=== PATIENT | female | born 1980 | race African-American/Black ===

== ENCOUNTER 2018-04-23 09:38 | Emergency (ER) | payer SELFPAY ==
--- NOTE | 2018-04-23 10:06 | ER Document Report ---
ED Medical Screen (RME) - General Chief Complaint: Vaginal Bleeding Stated Complaint: VAGINAL BLEEDING, BACK/SIDE PAIN Time Seen by Provider: 04/23/18 09:56 Notes: RAPID MEDICAL EVALUATION DISCLOSURE I have seen this patient as part of a Rapid Medical Evaluation and, if applicable, placed any initially appropriate orders. The patient will be seen and fully evaluated, including a full history and physical exam, by a provider (in Main ED or Fast Track) when a room becomes available. 37-year-old female here with complaints of low back pain, left side pain, and vaginal spotting ongoing for the past 2 weeks. Her back pain is worse with torso twisting. She has not taken anything for the symptoms other than Flexeril. She has not taken any home test. She does not have any urinary symptoms. She denies any abdominal pain. EXAM CTAB RRR No low back TTP TRAVEL OUTSIDE OF THE [place] IN LAST 30 DAYS: No - Related Data Allergies/Adverse Reactions: No Known Allergies Allergy (Unverified 04/23/18 09:55) Past Medical History - General Last Menstrual Period: currently menstrating - Social History Chew tobacco use (# tins/day): No Frequency of alcohol use: Occasional Drug Abuse: None Renal/ Medical History: Denies: Hx Peritoneal Dialysis Past Surgical History: Reports: Hx Orthopedic Surgery - ACL Physical Exam - Vital signs Vitals: Temp Pulse Resp BP Pulse Ox 98.4 F 72 18 116/72 100 04/23/18 09:53 04/23/18 09:53 04/23/18 09:53 04/23/18 09:53 04/23/18 09:53 Course - Vital Signs Vital signs: Temp Pulse Resp BP Pulse Ox 98.4 F 72 18 116/72 100 04/23/18 09:53 04/23/18 09:53 04/23/18 09:53 04/23/18 09:53 04/23/18 09:53
[2018-04-23 10:34] LABS: APPEARANCE,URINE SLIGHTLY-CLOUDY; BILIRUBIN,URINE NEGATIVE (NEGATIVE); COLOR,URINE YELLOW; GLUCOSE, URINE NEGATIVE (NEGATIVE); KETONES,URINE NEGATIVE (NEGATIVE); LEUKOCYTE ESTERASE,URINE NEGATIVE (NEGATIVE); NITRITE,URINE NEGATIVE (NEGATIVE); PROTEIN,URINE NEGATIVE (NEGATIVE); URINE SPECIFIC GRAVITY 1.024
[2018-04-23 11:25] LABS: RBCS (WET MOUNT) 4+ RBCS SEEN; T.VAGINALIS (WET MOUNT) NO TRICHOMONAS SEEN; WBCS (WET MOUNT) 2+ WBCS SEEN; YEAST (WET MOUNT) NO YEAST SEEN
[2018-04-23] MEDS ORDERED: ACETAMINOPHEN 325 MG TABLET PO ONE (11:27)
[2018-04-23] MEDS ORDERED: LIDOCAINE 5% (700 MG) TRANSDERMAL ADH..PATCH TP ONE (11:28)
--- NOTE | 2018-04-23 11:30 | ER Document Report ---
ED GI/ - General Chief Complaint: Vaginal Bleeding Stated Complaint: VAGINAL BLEEDING, BACK/SIDE PAIN Time Seen by Provider: 04/23/18 09:56 Mode of Arrival: Ambulatory Information source: Patient Notes: Patient presents complaining of a 2-week history of vaginal spotting with low back pain and left lateral side pain. Patient denies any fever, nausea vomiting or diarrhea. Patient denies any urinary symptoms. TRAVEL OUTSIDE OF THE [place] IN LAST 30 DAYS: No - HPI Patient complains to provider of: Vaginal bleeding, Other - Left side, low back pain. No: Vaginal discharge Onset: Other - 2 weeks Timing/Duration: Persistent Quality of pain: Achy Pain Level: 3 Location: LLQ Sexual history: Active Associated symptoms: denies: Constipation, Dysuria, Fever, Urinary hesitancy, Urinary frequency, Urinary retention, Vaginal discharge, Vomiting Exacerbated by: Denies Relieved by: Denies Similar symptoms previously: No Recently seen / treated by doctor: No - Related Data Allergies/Adverse Reactions: No Known Allergies Allergy (Unverified 04/23/18 09:55) Past Medical History - General Information source: Patient Last Menstrual Period: currently menstrating - Social History Smoking Status: Never Smoker Chew tobacco use (# tins/day): No Frequency of alcohol use: Occasional Drug Abuse: None Occupation: None Family History: Reviewed & Not Pertinent Patient has suicidal ideation: No Patient has homicidal ideation: No - Medical History Medical History: Negative Renal/ Medical History: Denies: Hx Peritoneal Dialysis Past Surgical History: Reports: Hx Gastric Bypass Surgery, Hx Orthopedic Surgery - ACL, Other - Skin removal after gastric bypass surgery Review of Systems - Review of Systems Constitutional: No symptoms reported. denies: Fever EENT: No symptoms reported Cardiovascular: No symptoms reported. denies: Chest pain, Dizziness Respiratory: No symptoms reported Gastrointestinal: Abdominal pain. denies: Nausea, Vomiting Genitourinary: No symptoms reported. denies: Dysuria, Flank pain Female Genitourinary: Vaginal bleeding. denies: Musculoskeletal: Back pain Skin: No symptoms reported Hematologic/Lymphatic: No symptoms reported Neurological/Psychological: No symptoms reported Physical Exam - Vital signs Vitals: Temp Pulse Resp BP Pulse Ox 98.4 F 72 18 116/72 100 04/23/18 09:53 04/23/18 09:53 04/23/18 09:53 04/23/18 09:53 04/23/18 09:53 - General General appearance: Appears well, Alert In distress: None - HEENT Head: Normocephalic, Atraumatic Eyes: Normal Conjunctiva: Normal Nasal: Normal Mouth/Lips: Normal Mucous membranes: Normal Neck: Normal, Supple. No: Lymphadenopathy - Respiratory Respiratory status: No respiratory distress Chest status: Nontender Breath sounds: Normal. No: Rales, Rhonchi, Stridor, Wheezing Chest palpation: Normal - Cardiovascular Rhythm: Regular Heart sounds: S1 appreciated, S2 appreciated Murmur: No - Abdominal Inspection: Morbidly Obese Distension: No distension Bowel sounds: Normal Tenderness: Tender - lower pelvic Organomegaly: No organomegaly - Genitourinary External exam: Normal Speculum exam: Cervix closed Vaginal bleeding: Mild Bimanuel exam: Normal. No: Adnexal tenderness - Back Back: Tender - lower lumbar paraspinal tenderness. No: CVA tenderness, Vertebra tenderness - Extremities General upper extremity: Normal inspection, Normal strength General lower extremity: Normal inspection, Normal strength - Neurological Neuro grossly intact: Yes Cognition: Normal Alonso Coma Scale Eye Opening: Spontaneous Alonso Coma Scale Verbal: Oriented Alonso Coma Scale Motor: Obeys Commands Alonso Coma Scale Total: 15 - Psychological Associated symptoms: Normal affect, Normal mood - Skin Skin Temperature: Warm Skin Moisture: Dry Skin Color: Normal Course - Vital Signs Vital signs: Temp Pulse Resp BP Pulse Ox 99.0 F 66 18 108/53 L 100 04/23/18 15:00 04/23/18 15:00 04/23/18 09:53 04/23/18 15:00 04/23/18 15:00 - Laboratory Laboratory results interpreted by me: 04/23/18 10:15 Urine Blood MODERATE H Urine Urobilinogen 4.0 H 04/23/18 14:46 Labs- Entire Visit 04/23/18 04/23/18 04/23/18 10:15 10:15 11:02 Urine Color YELLOW Urine Appearance SLIGHTLY-CLOUDY Urine pH 5.0 Ur Specific Cosby 1.024 Urine Protein NEGATIVE Urine Glucose (UA) NEGATIVE Urine Ketones NEGATIVE Urine Blood MODERATE H Urine Nitrite NEGATIVE Urine Bilirubin NEGATIVE Urine Urobilinogen 4.0 H Ur Leukocyte Esterase NEGATIVE Urine WBC (Auto) 1 Urine RBC (Auto) 1 Squamous Epi Cells Auto 1 Urine Mucus (Auto) FEW Urine Ascorbic Acid NEGATIVE Urine HCG, Qual NEGATIVE Trichomonas (Wet Prep) NO TRICHOMONAS SEEN Vaginal WBC 2+ WBCS SEEN Vaginal RBC 4+ RBCS SEEN Vaginal Yeast NO YEAST SEEN Chlamydia DNA (PCR) NOT DETECTED N.gonorrhoeae DNA (PCR) NOT DETECTED - Diagnostic Test Radiology reviewed: Reports reviewed Discharge - Discharge Clinical Impression: Dysmenorrhea Low back pain Qualifiers: Chronicity: unspecified Back pain laterality: bilateral Sciatica presence: without sciatica Qualified Code(s): M54.5 - Low back pain Condition: Stable Disposition: HOME, SELF-CARE Instructions: Acetaminophen, Dysmenorrhea ([facility]), Family Physicians / Practices, Low Back Pain ([facility]), Muscle Relaxers ([facility]) Additional Instructions: Return immediately for any new or worsening symptoms Followup with your primary care provider, call tomorrow to make a followup appointment Prescriptions: Metaxalone [Skelaxin 800 mg Tablet] 800 mg PO ASDIR PRN #15 tablet PRN Reason: Referrals: [facility] [Provider Group] - Follow up as needed
[2018-04-23 12:22] LABS: CHLAM PCR NOT DETECTED (NOT DETECT); GON PCR NOT DETECTED (NOT DETECT)
--- NOTE | 2018-04-23 14:33 | RADIOLOGY REPORT (SQ) ---
EXAM DESCRIPTION: U/S NON OB PEL TV W/DOPPLER COMPLETED DATE/TIME: 04/23/2018 1:52 pm REASON FOR STUDY: pelvic pain COMPARISON: None. TECHNIQUE: Dynamic and static grayscale images acquired of the pelvis via transvaginal approach and recorded on PACS. Additional selected color Doppler and spectral images recorded. LIMITATIONS: None. FINDINGS: UTERUS: Contour normal. No mass. ENDOMETRIAL STRIPE: No focal or generalized thickening. No masses. CERVIX: 2 cm. No nabothian cysts. RIGHT OVARY AND DOPPLER: Normal size. No worrisome masses. Peripherally oriented follicles. Normal arterial vascular flow without evidence for torsion. LEFT OVARY AND DOPPLER: Normal size. No worrisome masses. Peripherally oriented follicles. Normal a rterial vascular flow without evidence for torsion. FREE FLUID: None noted. OTHER: No other significant finding. MEASUREMENTS: UTERUS: 7.3 x 4.9 x 3.8 cm. ENDOMETRIAL STRIPE: 3 mm. RIGHT OVARY: 3.7 x 3.3 x 2 cm. LEFT OVARY: 3.8 x 2.3 x 2.2 cm. IMPRESSION: No acute findings in the pelvis. Correlate for polycystic ovarian syndrome. TECHNICAL DOCUMENTATION: JOB ID: [id number] [employer]- All Rights Reserved Rev-09/01 Reading location - IP/workstation name: [email or web address]
[2018-04-23 15:04] VITALS: BP 108/53
== END 2018-04-23 15:03 | disposition home or self-care (01) ==
LOC: ER 09:38
DX: N94.6 Dysmenorrhea, unspecified (principal); M54.5 Low back pain; Z98.84 Bariatric surgery status
CPT/HCPCS: 76830; 81001; 81025; 87210; 87491; 87591; 93976; 99284

== ENCOUNTER 2019-02-03 09:09 | Emergency (ER) | payer SELFPAY ==
--- NOTE | 2019-02-03 11:20 | ER Document Report ---
ED GI/ - General Chief Complaint: Abdominal Pain Stated Complaint: LOWER LEFT ABDOMINAL PAIN Time Seen by Provider: 02/03/19 10:29 Information source: Patient Notes: HPI: Patient is a 38-year-old female that presents today with intermittent left lower quadrant pain for about 4 days. She denies any radiation. She denies any aggravating or relieving factors. She denies any nausea, vomiting, fevers, dysuria, or diarrhea. Patient is status post gastric bypass in 2012. Patient does state that yesterday she noticed a little "pink fluid" from her midline surgical scar. She states that it has resolved today. Patient states her surgery was complicated by a hernia that needed operative repair months after the surgery concluded. Patient also has a history of PCOS. ROS: See HPI All other review of systems reviewed and otherwise negative Reviewed vital signs and nursing note as charted by RN. PHYSICAL EXAM: CONSTITUTIONAL: Alert and oriented and responds appropriately to questions. Well-appearing; well-nourished HEAD: Normocephalic; atraumatic EYES: PERRL; sclerae non-icteric ENT: Normal nose; no rhinorrhea; moist mucous membranes; pharynx without lesions noted NECK: Supple without meningismus; non-tender; no cervical lymphadenopathy, no masses CARD: Regular rate and rhythm; no murmurs; symmetric distal pulses RESP: Normal chest excursion without splinting or tachypnea; breath sounds clear and equal bilaterally ABD/GI: Normal bowel sounds; non-distended; soft, no focal tenderness currently to deep palpation of all 4 quadrants of the abdomen; patient does have an old midline surgical scar. There is a 1 mm area of redness with no obvious drainage, swelling, erythema, or induration to the lower midline scar BACK: The back appears normal and is non-tender to palpation EXT: Normal ROM in all joints; non-tender to palpation; no edema SKIN: No acute lesions noted NEURO: CN 2-12 intact; 5/5 bilateral upper and lower extremity strength with sensation intact to light touch PSYCH: The patient's mood and manner are appropriate. Grooming and personal hygiene are appropriate. TRAVEL OUTSIDE OF THE [place] IN LAST 30 DAYS: No - Related Data Allergies/Adverse Reactions: No Known Allergies Allergy (Unverified 04/23/18 09:55) Past Medical History - Social History Smoking Status: Never Smoker Frequency of alcohol use: Occasional Family History: Reviewed & Not Pertinent Patient has suicidal ideation: No Patient has homicidal ideation: No Renal/ Medical History: Denies: Hx Peritoneal Dialysis Past Surgical History: Reports: Hx Gastric Bypass Surgery, Hx Orthopedic Surgery - ACL, Other - Skin removal after gastric bypass surgery Physical Exam - Vital signs Vitals: Temp Pulse Resp BP Pulse Ox 98.5 F 89 16 124/67 100 02/03/19 09:18 02/03/19 09:18 02/03/19 09:18 02/03/19 09:18 02/03/19 09:18 Course - Re-evaluation Re-evalutation: 02/03/19 11:20 Given the above history and physical we will obtain basic labs, liver panel, lipase, urinalysis, test, and obtain a CT scan of the abdomen and pelvis with p.o. and IV contrast. I would like to assess for any intra- abdominal acute infectious process and/or fistula formation. Patient's exam is very benign at this moment and she is declining pain medications. I do believe acute ovarian torsion to be unlikely. 02/03/19 14:51 Labs, urine analysis, and CT scan of the abdomen and pelvis as recorded. Patient has no focal tenderness on repeat examination. 02/03/19 14:55 I have had a long discussion with the patient about the possibility of sexually transmitted disease. She is in a monogamous relationship and is to fill the pelvic exam. Patient's pain is well controlled and very mild without any intervention required. Urine culture has been sent. Urine GC/chlamydia has been sent. I do believe acute ovarian torsion to be extraordinarily unlikely. I will start the patient on antibiotics with strict return precautions and follow-up with the primary care physician. - Vital Signs Vital signs: Temp Pulse Resp BP Pulse Ox 98.5 F 89 16 124/67 100 02/03/19 09:18 02/03/19 09:18 02/03/19 09:18 02/03/19 09:18 02/03/19 09:18 - Laboratory Result Diagrams: 02/03/19 09:28 02/03/19 09:28 Laboratory results interpreted by me: 02/03/19 02/03/19 02/03/19 09:28 09:28 12:55 MCH 26.4 L RDW 17.6 H Lymph % (Auto) 49.5 H Glucose 123 H Urine Urobilinogen 2.0 H Ur Leukocyte Esterase MODERATE H Discharge - Discharge Clinical Impression: Left lower quadrant abdominal pain, Leukocytes in urine Disposition: HOME, SELF-CARE Additional Instructions: Come back immediately with any increased pain, change in location or quality of pain, fevers or vomiting, inability urinate, or any other acute problems. Please follow-up with your primary care physician regarding reassessment and analysis of the urine culture as discussed. Prescriptions: Cephalexin Monohydrate [Keflex 500 mg Capsule] 500 mg PO Q6H 7 Days #21 capsule Hydrocodone/Acetaminophen [Houstonia 5-325 mg Tablet] 1 tab PO Q6H #12 tablet
[2019-02-03 12:15] LABS: ABSOLUTE EOSINOPHILS # (AUTO) 0.1 10^3/uL (0.0-0.6); ABSOLUTE LYMPHOCYTES (AUTO) 2.4 10^3/uL (0.5-4.7); ABSOLUTE MONOCYTES (AUTO) 0.3 10^3/uL (0.1-1.4); HEMOGLOBIN 12.8 g/dL (12.0-15.5); RED CELL DISTRIBUTION WIDTH 17.6 % (11.5-14.0); TOTAL CELLS COUNTED % (AUTO) 100 %; WHITE BLOOD COUNT 4.8 10^3/uL (4.0-10.5)
[2019-02-03 12:20] LABS: ABSOLUTE NEUT (AUTO) 2.1 10^3/uL (1.7-8.2); BASOPHILS % (AUTO) 0.6 % (0-2); EOSINOPHILS % (AUTO) 1.5 % (0-6); HEMATOCRIT 39.4 % (36.0-47.0); LYMPHOCYTES % (AUTO) 49.5 % (13-45); MEAN CORPUSCULAR HEMOGLOBIN 26.4 pg (27.0-33.4); MEAN CORPUSCULAR HGB CONC 32.6 g/dL (32.0-36.0); MEAN CORPUSCULAR VOLUME 81 fl (80-97); PLATELET COUNT 247 10^3/uL (150-450); RED BLOOD COUNT 4.85 10^6/uL (3.72-5.28); SEGMENTED NEUTROPHILS % (AUTO) 42.4 % (42-78)
[2019-02-03 12:30] LABS: ALKALINE PHOSPHATASE 64 U/L (38-126); ANION GAP 8 (5-19); ASPARTATE AMINO TRANSFERASE 23 U/L (14-36); BILIRUBIN,DIRECT 0.1 mg/dL (0.0-0.4); BILIRUBIN,TOTAL 0.8 mg/dL (0.2-1.3); BLOOD UREA NITROGEN 9 mg/dL (7-20); CALCIUM 8.9 mg/dL (8.4-10.2); CARBON DIOXIDE 27 mmol/L (22-30); CHLORIDE 105 mmol/L (98-107); GLUCOSE 123 mg/dL (75-110); POTASSIUM 3.9 mmol/L (3.6-5.0); TOTAL PROTEIN 7.1 g/dL (6.3-8.2)
[2019-02-03 13:21] LABS: APPEARANCE,URINE SLIGHTLY-CLOUDY; BILIRUBIN,URINE NEGATIVE (NEGATIVE); COLOR,URINE YELLOW; GLUCOSE, URINE NEGATIVE (NEGATIVE); KETONES,URINE NEGATIVE (NEGATIVE); LEUKOCYTE ESTERASE,URINE MODERATE (NEGATIVE); NITRITE,URINE NEGATIVE (NEGATIVE); PROTEIN,URINE NEGATIVE (NEGATIVE); URINE SPECIFIC GRAVITY 1.012
--- NOTE | 2019-02-03 14:24 | RADIOLOGY REPORT (SQ) ---
EXAM DESCRIPTION: CT ABD/PELVIS WITH IV ORAL COMPLETED DATE/TIME: 02/03/2019 2:10 pm REASON FOR STUDY: 21; left abdominal pain with h/o gastric bypass COMPARISON: None. TECHNIQUE: CT scan of the abdomen and pelvis performed with intravenous and oral contrast using bimal britton scanning technique with dynamic intravenous contrast injection. Images reviewed with lung, soft t issue, and bone windows. Reconstructed coronal and sagittal MPR images reviewed. Delayed images for e valuation of the urinary system also acquired. All images stored on PACS. All CT scanners at this facility use dose modulation, iterative reconstruction, and/or weight based d osing when appropriate to reduce radiation dose to as low as reasonably achievable (ALARA). [facility]: Dose Right [facility]: CareDose [facility]: Dose Right [facility]: Teradose 4D [facility]: [employer] CONTRAST TYPE AND DOSE: contrast/concentration: Isovue 350.00 mg/ml; Total Contrast Delivered: 100.0 ml; Total Saline Delivered: 72.0 ml RENAL FUNCTION: BUN 9 creatinine 0.59. RADIATION DOSE: CT Rad equipment meets quality standard of care and radiation dose reduction techniq ues were employed. CTDIvol: 16.9 - 20.2 mGy. DLP: 2124 mGy-cm.. LIMITATIONS: None. FINDINGS: LOWER CHEST: No significant findings. No nodules or infiltrates. LIVER: Normal size. No masses. No dilated ducts. SPLEEN: Normal size. No focal lesions. PANCREAS: No masses. No significant calcifications. No adjacent inflammation or peripancreatic fluid collections. Pancreatic duct not dilated. GALLBLADDER: No identified stones by CT criteria. No inflammatory changes to suggest cholecystitis. ADRENAL GLANDS: No significant masses or asymmetry. RIGHT KIDNEY AND URETER: No solid masses. No significant calcification. No hydronephrosis or hydroure ter. LEFT KIDNEY AND URETER: No solid masses. No significant calcification. No hydronephrosis or hydrouret er. AORTA AND VESSELS: No aneurysm. No dissection. Renal arteries, SMA, celiac without stenosis. RETROPERITONEUM: No retroperitoneal adenopathy, hemorrhage or masses. BOWEL AND PERITONEAL CAVITY: Previous gastric surgery. No obstruction. No visualized masses. No free fluid. No inflammatory changes or thickening of bowel wall. APPENDIX: Normal. PELVIS: No significant masses. Normal bladder. No free fluid. ABDOMINAL WALL: An external marker is located in the midline of the anterior abdominal wall at the si te of skin drainage (axial series 3, image 60). No abnormal findings on the skin surface or in the s ubcutaneous fat. No masses. No hernias. BONES: No significant or acute findings. OTHER: No other significant finding. IMPRESSION: NO SIGNIFICANT OR ACUTE FINDINGS IN THE ABDOMEN OR PELVIS. PREVIOUS GASTRIC SURGERY. N O ABNORMAL FINDINGS IN THE ANTERIOR ABDOMINAL WALL AT THE SITE OF REPORTED SKIN DRAINAGE. TECHNICAL DOCUMENTATION: JOB ID: [id number] Quality ID # [id number]: Final reports with documentation of one or more dose reduction techniques (e.g., Au tomated exposure control, adjustment of the mA and/or kV according to patient size, use of iterative reconstruction technique) 2010 [employer]- All Rights Reserved Reading location - IP/workstation name: [email or web address]
[2019-02-03] MEDS ORDERED: CEFTRIAXONE 1 GM/D5W RTU 1 GM/50 ML RTUPB IV ONE (14:51)
[2019-02-03 15:44] VITALS: BP 111/63
== END 2019-02-03 15:40 | disposition home or self-care (01) ==
LOC: ER 09:09
DX: R10.32 Left lower quadrant pain (principal); R82.998 Other abnormal findings in urine; Z98.84 Bariatric surgery status
CPT/HCPCS: 36415; 87086; 83690; 85025; 81025; 80053; 81001; 74177; J0696

== ENCOUNTER 2019-10-18 09:11 | Emergency (ER) | payer OTHER ==
[2019-10-18 10:16] LABS: APPEARANCE,URINE SLIGHTLY-CLOUDY; BILIRUBIN,URINE NEGATIVE (NEGATIVE); COLOR,URINE YELLOW; GLUCOSE, URINE NEGATIVE (NEGATIVE); KETONES,URINE NEGATIVE (NEGATIVE); LEUKOCYTE ESTERASE,URINE NEGATIVE (NEGATIVE); NITRITE,URINE NEGATIVE (NEGATIVE); PROTEIN,URINE 30 mg/dL (NEGATIVE); URINE SPECIFIC GRAVITY 1.027
--- NOTE | 2019-10-18 10:25 | ER Document Report ---
ED Medical Screen (RME) - General Chief Complaint: Lower Abdominal Pain Stated Complaint: ABDOMINAL PAIN Time Seen by Provider: 10/18/19 10:13 TRAVEL OUTSIDE OF THE [place] IN LAST 30 DAYS: No - HPI Notes: 10/18/19 10:21 39-year-old female with a history of gastric bypass in 2003, PCOS, with skin removal presents to the emergency room with 2 weeks of vaginal spotting only when "drinking wine". Reports first episode was 2 weeks ago, states she drank wine and then had had light pink vaginal bleeding that lasted only at night, then 2 days later she said she drank wine again and had dark red bleedin g. Then reports the third time was 5 days ago but at that time she states she did not drink wine and had some vaginal bleeding. Reports since 5 days ago she has had nausea with left lower quadrant abdominal pain that does not radiate to her flank area. LMP09/04/2019, is sexually active with her . Has not taken a test. Fevers chills, chest pain, shortness of breath, vomiting, diarrhea. Last Pap was February 2018 I have greeted and performed a rapid initial assessment of this patient. A comprehensive ED assessment and evaluation of the patient, analysis of test results and completion of the medical decision making process will be conducted by additional ED providers. PHYSICAL EXAMINATION: GENERAL: Well-appearing, well-nourished and in no acute distress. CV: s1, s2 regular LUNGS: No respiratory distress abd: LLQ abd pain, no cva pain appreciated bilaterally Musculoskeletal: Normal range of motion NEUROLOGICAL: Normal speech, normal gait. SKIN: Warm, Dry, normal turgor, no rashes or lesions noted. 10/18/19 10:24 - Related Data Allergies/Adverse Reactions: No Known Allergies Allergy (Verified 10/18/19 09:33) Past Medical History - Social History Chew tobacco use (# tins/day): No Frequency of alcohol use: Social Drug Abuse: None Renal/ Medical History: Denies: Hx Peritoneal Dialysis Past Surgical History: Reports: Hx Gastric Bypass Surgery, Hx Orthopedic Surgery - ACL, Other - Skin removal after gastric bypass surgery Physical Exam - Vital signs Vitals: Temp Pulse Resp BP Pulse Ox 99.2 F 103 H 16 136/85 H 100 10/18/19 09:18 10/18/19 09:18 10/18/19 09:18 10/18/19 09:18 10/18/19 09:18 Course - Vital Signs Vital signs: Temp Pulse Resp BP Pulse Ox 99.2 F 103 H 16 136/85 H 100 10/18/19 09:36 10/18/19 09:18 10/18/19 09:18 10/18/19 09:18 10/18/19 09:18 - Laboratory Laboratory results interpreted by me: 10/18/19 09:42 Urine Protein 30 H Urine Urobilinogen 4.0 H
[2019-10-18 10:50] LABS: ABSOLUTE EOSINOPHILS # (AUTO) 0.1 10^3/uL (0.0-0.6); ABSOLUTE LYMPHOCYTES (AUTO) 2.1 10^3/uL (0.5-4.7); ABSOLUTE MONOCYTES (AUTO) 0.6 10^3/uL (0.1-1.4); ABSOLUTE NEUT (AUTO) 1.5 10^3/uL (1.7-8.2); BASOPHILS % (AUTO) 0.7 % (0-2); EOSINOPHILS % (AUTO) 1.3 % (0-6); HEMATOCRIT 39.3 % (36.0-47.0); HEMOGLOBIN 12.8 g/dL (12.0-15.5); LYMPHOCYTES % (AUTO) 48.5 % (13-45); MEAN CORPUSCULAR HEMOGLOBIN 26.2 pg (27.0-33.4); MEAN CORPUSCULAR HGB CONC 32.6 g/dL (32.0-36.0); MEAN CORPUSCULAR VOLUME 81 fl (80-97); MONOCYTES % (AUTO) 13.4 % (3-13); PLATELET COUNT 291 10^3/uL (150-450); RED BLOOD COUNT 4.88 10^6/uL (3.72-5.28); RED CELL DISTRIBUTION WIDTH 18.9 % (11.5-14.0); SEGMENTED NEUTROPHILS % (AUTO) 36.1 % (42-78); TOTAL CELLS COUNTED % (AUTO) 100 %; WHITE BLOOD COUNT 4.2 10^3/uL (4.0-10.5)
[2019-10-18 11:06] LABS: ALBUMIN 4.3 g/dL (3.5-5.0); ALKALINE PHOSPHATASE 93 U/L (38-126); ANION GAP 6 (5-19); ASPARTATE AMINO TRANSFERASE 36 U/L (14-36); BILIRUBIN,TOTAL 1.6 mg/dL (0.2-1.3); BLOOD UREA NITROGEN 12 mg/dL (7-20); CARBON DIOXIDE 27 mmol/L (22-30); CHLORIDE 104 mmol/L (98-107); GLUCOSE 88 mg/dL (75-110); POTASSIUM 3.8 mmol/L (3.6-5.0); TOTAL PROTEIN 7.5 g/dL (6.3-8.2)
--- NOTE | 2019-10-18 12:52 | RADIOLOGY REPORT (SQ) ---
EXAM DESCRIPTION: CT ABD/PELVIS WITH IV ORAL IMAGES COMPLETED DATE/TIME: 10/18/2019 12:31 pm REASON FOR STUDY: LLQ abd pain COMPARISON: CT abdomen pelvis 02/03/2019 TECHNIQUE: CT scan of the abdomen and pelvis performed using helical scanning technique with dynamic intravenous contrast injection. Patient drank oral contrast. Images reviewed with lung, soft tissue , and bone windows. Reconstructed coronal and sagittal MPR images reviewed. Delayed images for evalua tion of the urinary system also acquired. All images stored on PACS. All CT scanners at this facility use dose modulation, iterative reconstruction, and/or weight based d osing when appropriate to reduce radiation dose to as low as reasonably achievable (ALARA). [facility]: Dose Right [facility]: CareDose [facility]: Dose Right [facility]: Teradose 4D [facility]: [place] CONTRAST TYPE AND DOSE: 100 mL of IV Omnipaque 350- low osmolar. RENAL FUNCTION: None required. The patient is less than 50 years old. RADIATION DOSE: 37 mGy LIMITATIONS: None. FINDINGS: LOWER CHEST: No significant findings. No nodules or infiltrates. LIVER: Normal size. No masses. No dilated ducts. SPLEEN: Normal size. No focal lesions. PANCREAS: No masses. No significant calcifications. No adjacent inflammation or peripancreatic fluid collections. Pancreatic duct not dilated. GALLBLADDER: Surgically absent. ADRENAL GLANDS: No significant masses or asymmetry. RIGHT KIDNEY AND URETER: No solid masses. No significant calcifications. No hydronephrosis or hyd roureter. LEFT KIDNEY AND URETER: No solid masses. No significant calcifications. No hydronephrosis or hydr oureter. AORTA AND VESSELS: No aneurysm. No dissection. Renal arteries, SMA, celiac without stenosis. RETROPERITONEUM: No retroperitoneal adenopathy, hemorrhage or masses. BOWEL AND PERITONEAL CAVITY: Patient drank oral contrast. Patient has a gastric bypass. No dilated loops of bowel worrisome for obstruction. No colonic diverticulosis. No masses or inflammatory nisha nges. No free fluid or peritoneal masses. APPENDIX: Normal. PELVIS: No mass. No free fluid. Normal bladder. Normal size female pelvic organs ABDOMINAL WALL: No masses. No hernias. BONES: No significant or acute findings. OTHER: No other significant finding. IMPRESSION: POST GASTRIC BYPASS AND CHOLECYSTECTOMY. OTHERWISE UNREMARKABLE CT ABDOMEN PELVIS WITH ORAL AND IV CONTRAST TECHNICAL DOCUMENTATION: JOB ID: [id number] Quality ID # [id number]: Final reports with documentation of one or more dose reduction techniques (e.g., Au tomated exposure control, adjustment of the mA and/or kV according to patient size, use of iterative reconstruction technique) 2010 [employer]- All Rights Reserved Reading location - IP/workstation name: [email or web address]
--- NOTE | 2019-10-18 13:40 | RADIOLOGY REPORT (SQ) ---
EXAM DESCRIPTION: U/S NON OB PEL TV W/DOPPLER IMAGES COMPLETED DATE/TIME: 10/18/2019 1:21 pm REASON FOR STUDY: L pelvic pain with spotting x 3 w COMPARISON: 10/18/2019 and 04/23/2018 TECHNIQUE: Dynamic and static grayscale images acquired of the pelvis via transvaginal approach and recorded on PACS. Additional selected color Doppler and spectral images recorded. LIMITATIONS: None. FINDINGS: UTERUS: Contour normal. No mass. ENDOMETRIAL STRIPE: No focal or generalized thickening. No masses. CERVIX: The cervical endometrium appears somewhat heterogeneous, possibly on the basis of blood produ cts. RIGHT OVARY AND DOPPLER: Normal size. No worrisome masses. Normal arterial vascular flow without evid ence for torsion. LEFT OVARY AND DOPPLER: Normal size. No worrisome masses. Normal arterial vascular flow without evide nce for torsion. FREE FLUID: Small amount of free fluid is seen within the pelvic cul-de-sac. OTHER: No other significant finding. MEASUREMENTS: UTERUS: 8.1 x 3.9 x 4.7 cm ENDOMETRIAL STRIPE: 1.0 cm RIGHT OVARY: 3.9 x 2.8 x 3.3 cm LEFT OVARY: 3.8 x 2.4 x 2.6 cm IMPRESSION: Heterogeneous appearance of the endocervical canal may represent blood products. Otherw ise normal sonographic appearance of the uterus and adnexa. TECHNICAL DOCUMENTATION: JOB ID: [id number] 2010 [employer]- All Rights Reserved Rev Reading location - IP/workstation name: [email or web address]
--- NOTE | 2019-10-18 16:08 | ER Document Report ---
ED GI/ - General Chief Complaint: Lower Abdominal Pain Stated Complaint: ABDOMINAL PAIN Time Seen by Provider: 10/18/19 10:13 Mode of Arrival: Ambulatory Information source: Patient Notes: This 39-year-old female presents to the emergency department with a complaint of left sided abdominal pain. She has a history of gastric bypass surgery in the past. She also notes that she has noted intermittent blood when she wiped over the past couple of days. She denies vomiting, nausea, loss of appetite or fever. TRAVEL OUTSIDE OF THE [place] IN LAST 30 DAYS: No - Related Data Allergies/Adverse Reactions: No Known Allergies Allergy (Verified 10/18/19 09:33) Past Medical History - Social History Smoking Status: Former Smoker Chew tobacco use (# tins/day): No Frequency of alcohol use: Social Drug Abuse: None Family History: Reviewed & Not Pertinent Patient has homicidal ideation: No Renal/ Medical History: Denies: Hx Peritoneal Dialysis Past Surgical History: Reports: Hx Gastric Bypass Surgery, Hx Orthopedic Surgery - ACL, Other - Skin removal after gastric bypass surgery Review of Systems - Review of Systems Notes: Constitutional: Negative for fever. HENT: Negative for sore throat. Eyes: Negative for visual changes. Cardiovascular: Negative for chest pain. Respiratory: Negative for shortness of breath. Gastrointestinal: See HPI Genitourinary: Negative for dysuria. Musculoskeletal: Negative for back pain. Skin: Negative for rash. Neurological: Negative for headaches, weakness or numbness. 10 point ROS negative except as marked above and in HPI. Physical Exam - Vital signs Vitals: Temp Pulse Resp BP Pulse Ox 99.2 F 103 H 16 136/85 H 100 10/18/19 09:18 10/18/19 09:18 10/18/19 09:18 10/18/19 09:18 10/18/19 09:18 - Notes Notes: PHYSICAL EXAMINATION: Physical Exam: General: Somewhat overweight 39-year-old woman in no acute distress HEENT: NC/AT, pupils equal round and reactive to light, MM moist,nares clear, oropharynx clear, airway patent Neck: supple, no adenopathy, no masses. Good range of motion Lungs: clear, no wheezing, no rales no rhonchi CVS: Regular rate and rhythm no murmur gallop or rub Abdomen: Soft, active, mild tenderness in the left lower quadrant/left pelvic region, no guarding no rebound. Ext: No edema, clubbing or cyanosis. Neuro: Alert and responsive, moving all 4 extremities on command, cranial nerves intact, no focal findings Skin: Intact no open lesions, no rash PSYCH: Normal mood, normal affect. Course - Re-evaluation Re-evalutation: 10/18/19 16:[address] scan of the abdomen and pelvis with oral and IV contrast was negative for any acute findings., History of cholecystectomy, history of gastric bypass. Ultrasound of the pelvis reveals blood products in the uterus, no other abnormalities are seen. I discussed these findings with the patient, she is given a prescription for tramadol for pain. She is to avoid NSAIDs given the gastric bypass surgery. I also encouraged her to get back on her B12 shots and a follow-up with her primary care doctor as needed. There is a chance that she may have vaginal bleeding related to the ultrasound findings. The patient and knowledges understanding of this plan and is in agreement. - Vital Signs Vital signs: Temp Pulse Resp BP Pulse Ox 98.4 F 66 16 98/65 L 99 10/18/19 15:34 10/18/19 15:34 10/18/19 15:34 10/18/19 15:34 10/18/19 15:34 - Laboratory Result Diagrams: 10/18/19 10:25 10/18/19 10:25 Laboratory results interpreted by me: 10/18/19 10/18/19 10/18/19 09:42 10:25 10:25 MCH 26.2 L RDW 18.9 H Lymph % (Auto) 48.5 H Victoria % (Auto) 13.4 H Absolute Neuts (auto) 1.5 L Seg Neutrophils % 36.1 L Sodium 136.9 L Total Bilirubin 1.6 H Urine Protein 30 H Urine Urobilinogen 4.0 H 10/18/19 16:07 I have reviewed laboratory data and used this information for the treatment decisions regarding the patient. - Diagnostic Test Radiology reviewed: Image reviewed, Reports reviewed - CT abdomen and pelvis with IV and oral contrast: No acute findings, prior cholecystectomy and gastric bypass surgery. Pelvic ultrasound: Heterogeneous appearance to the endocervical canal question of blood products Discharge - Discharge Clinical Impression: Left lower quadrant abdominal pain, Uterine bleeding Condition: Good Disposition: HOME, SELF-CARE Additional Instructions: You were seen in the emergency department today with the abdominal pain episodes which you have noted. There is also findings on ultrasound suggest that you may have vaginal bleeding in the very near future. You given prescription for tramadol to use for pain. You may supplement Tylenol if needed. If your symptoms are worsening or if you have other concerns you may return to the emergency department. Otherwise you can follow-up with your primary care doctor as needed. HOME CARE INSTRUCTIONS & INFORMATION: Thank you for choosing us for your me dical needs. We hope you're satisfied with the care you received. After you leave, you must properly care for your problem and, at the same time, observe its progress. Any condition can change. Some illnesses can change rapidly over hours or days. If your condition worsens, return to the Emergency Department or see your physician promptly. ABOUT YOUR X-RAYS AND EKG'S: If you had an EKG or X-rays taken, they have been read by the Emergency Physician. The X-rays and EKG's will also be read by a Radiologist or Right Of Way Manager within 24 hours. If discrepancies are noted, you will be notified by telephone. Please be certain the ED has a correct telephone number & address where you can be reached. Also, realize that some fractures or abnormalities do not show up on initial X-rays. If your symptoms continue, see your physician. ABOUT YOUR LABORATORY TEST: If you had laboratory tests, the results have been reviewed by the Emergency Physician. Some test results (for example cultures) may not be available for several days. You will be contacted if any test result shows you need additional treatment. Please be certain the ED has a correct telephone number and address where you can be reached. ABOUT YOUR MEDICATIONS: You will receive instructions on how to take your medicine on the prescription label you receive. Additional information may be provided by the Pharmacy. If you have questions afterwards, call the ED for clarification or further instructions. Some prescribed medications may cause drowsiness. Do not perform tasks such as driving a car or operating machinery without consulting your Pharmacist. If you feel you need a refill of pain medication, your condition will need re-evaluation. Please do not call for a refill of any medication. ABOUT YOUR SIGNATURE: Signature of this document acknowledges to followin. Understanding that you received emergency treatment and that you may be released before al medical problems are known or treated. Please be certain the ED has a correct phone number & address where you can be reached. 2. Acknowledgement that you will arrange for follow-up care as recommended. 3. Authorization for the Emergency Physician to provide information to your follow-up Physician in order to maximize your care. AT ANY TIME, IF YOUR SYMPTOMS CHANGE SIGNIFICANTLY OR WORSEN OR YOU DEVELOP NEW SYMPTOMS, RETURN TO THE EMERGENCY DEPARTMENT IMMEDIATELY FOR RE-EVALUATION. OUR GOAL IS TO PROVIDE EXCELLENT MEDICAL CARE! WE HOPE THAT WE HAVE MET YOUR EXPECTATIONS DURING YOUR EMERGENCY DEPARTMENT VISIT AND THAT YOU FEEL YOU HAVE RECEIVED EXCELLENT CARE! Prescriptions: Tramadol HCl [Ultram 50 mg Tablet] 50 mg PO Q4HP PRN #12 tab PRN Reason:
[2019-10-18 16:21] VITALS: BP 112/83
== END 2019-10-18 16:21 | disposition home or self-care (01) ==
LOC: ER 09:11
DX: R10.30 Lower abdominal pain, unspecified (principal); R10.32 Left lower quadrant pain; N93.9 Abnormal uterine and vaginal bleeding, unspecified; Z98.84 Bariatric surgery status; Z87.891 Personal history of nicotine dependence; Z90.49 Acquired absence of other specified parts of digestive tract
CPT/HCPCS: 36415; 74177; 76830; 80053; 81001; 81025; 83690; 85025; 93976; 99284

== ENCOUNTER 2019-12-04 21:17 | Emergency (ER) | payer OTHER ==
[2019-12-04] MEDS ORDERED: DIPH/PERTUSS(ACELL)/TETANUS VAC/PF 0.5 ML SYR (>=10YO) IM ONE (23:27)
--- NOTE | 2019-12-04 23:28 | ER Document Report ---
ED Medical Screen (RME) - General Chief Complaint: Finger Injury Stated Complaint: THUMB LACERATION Time Seen by Provider: 12/04/19 23:23 Mode of Arrival: Ambulatory Information source: Patient Notes: Patient was cutting vegetables this evening and sliced through the tip of her left thumb. Patient with laceration involving the tip of her left thumb involving the nail and nailbed. I have greeted and performed a rapid initial assessment of this patient. A comprehensive ED assessment and evaluation of the patient, analysis of test results and completion of the medical decision making process will be conducted by additional ED providers. TRAVEL OUTSIDE OF THE [place] IN LAST 30 DAYS: No - Related Data Allergies/Adverse Reactions: No Known Allergies Allergy (Verified 12/04/19 23:22) Past Medical History Renal/ Medical History: Denies: Hx Peritoneal Dialysis Past Surgical History: Reports: Hx Gastric Bypass Surgery, Hx Orthopedic Surgery - ACL, Other - Skin removal after gastric bypass surgery Physical Exam - Vital signs Vitals: Temp Pulse Resp BP Pulse Ox 98.8 F 84 20 134/77 H 100 12/04/19 21:36 12/04/19 21:36 12/04/19 21:36 12/04/19 21:36 12/04/19 21:36 - Skin Skin irregularity: Laceration - Left thumb laceration involving the nail Course - Vital Signs Vital signs: Temp Pulse Resp BP Pulse Ox 98.8 F 84 20 134/77 H 100 12/04/19 21:36 12/04/19 21:36 12/04/19 21:36 12/04/19 21:36 12/04/19 21:36
[2019-12-05 00:37] VITALS: BP 110/68
== END 2019-12-05 05:35 | disposition left against medical advice (07) ==
LOC: ER 21:17
DX: S61.112A Laceration without foreign body of left thumb with damage to nail, initial encounter (principal); W45.8XXA Other foreign body or object entering through skin, initial encounter; Y93.G9 Activity, other involving cooking and grilling; Z53.29 Procedure and treatment not carried out because of patient's decision for other reasons
CPT/HCPCS: 99281

== ENCOUNTER 2020-04-27 15:57 | Emergency (ER) | payer SELFPAY ==
[2020-04-27 16:07] VITALS: BP 144/85
--- NOTE | 2020-04-27 17:58 | ER Document Report ---
ED Medical Screen (RME) - General Stated Complaint: CHEST PAIN Time Seen by Provider: 04/27/20 17:50 Notes: HPI: 40-year-old female presenting to the emergency department complaining of a sharp pressure-like sensation in the left anterior chest with no radiation and no specific shortness of breath except for discomfort with taking a deep breath then over the last 2 to 3 hours. States she has had this happen previously never had it evaluated. Denies abdominal pain nausea vomiting. No family history of early coronary artery disease PHYSICAL EXAMINATION: Lung sounds are clear to auscultation regular rate and rhythm. Slight flattening of anterior lateral T waves on EKG I have greeted and performed a rapid initial assessment of this patient. A comprehensive ED assessment and evaluation of the patient, analysis of test results and completion of medical decision making process will be conducted by an additional ED providers. Please note that clinical decision making for this patient was made during the 2019 pandemic of novel coronavirus which caused a significant strain on the healthcare system including at this particular facility. Criteria for admission discharge and level of care decisions as well as treatment decisions have necessarily changed TRAVEL OUTSIDE OF THE [place] IN LAST 30 DAYS: No - Related Data Allergies/Adverse Reactions: No Known Allergies Allergy (Verified 12/04/19 23:22) Past Medical History Renal/ Medical History: Denies: Hx Peritoneal Dialysis Past Surgical History: Reports: Hx Gastric Bypass Surgery, Hx Orthopedic Surgery - ACL, Other - Skin removal after gastric bypass surgery Physical Exam - Vital signs Vitals: Temp Pulse Resp BP Pulse Ox 98.5 F 103 H 16 144/85 H 98 04/27/20 16:05 04/27/20 16:05 04/27/20 16:05 04/27/20 16:05 04/27/20 16:05 Course - Vital Signs Vital signs: Temp Pulse Resp BP Pulse Ox 98.5 F 103 H 16 144/85 H 98 04/27/20 16:05 04/27/20 16:05 04/27/20 16:05 04/27/20 16:05 04/27/20 16:05
--- NOTE | 2020-04-27 18:11 | RADIOLOGY REPORT (SQ) ---
EXAM DESCRIPTION: CHEST SINGLE VIEW IMAGES COMPLETED DATE/TIME: 04/27/2020 6:01 pm REASON FOR STUDY: chest pain COMPARISON: None. EXAM PARAMETERS: NUMBER OF VIEWS: One view. TECHNIQUE: Single frontal radiographic view of the chest acquired. RADIATION DOSE: NA LIMITATIONS: None. FINDINGS: LUNGS AND PLEURA: No opacities, masses or pneumothorax. No pleural effusion. MEDIASTINUM AND HILAR STRUCTURES: No masses. Contour normal. HEART AND VASCULAR STRUCTURES: Heart normal in size. Normal vasculature. BONES: No acute findings. HARDWARE: None in the chest. OTHER: No other significant finding. IMPRESSION: NO ACUTE RADIOGRAPHIC FINDING IN THE CHEST. TECHNICAL DOCUMENTATION: JOB ID: [id number] 2010 [employer]- All Rights Reserved Reading location - IP/workstation name: [email or web address]
--- NOTE | 2020-04-27 18:16 | EKG REPORT ---
SEVERITY:- BORDERLINE ECG - SINUS TACHYCARDIA BORDERLINE T ABNORMALITIES, ANTERIOR LEADS : Confirmed by: Viridiana Wade MD 27-Apr-2020 18:15:02
[2020-04-27 19:03] LABS: ALBUMIN 4.3 g/dL (3.5-5.0); ALKALINE PHOSPHATASE 86 U/L (38-126); ANION GAP 8 (5-19); ASPARTATE AMINO TRANSFERASE 34 U/L (14-36); BILIRUBIN,DIRECT 0.1 mg/dL (0.0-0.4); BILIRUBIN,TOTAL 0.6 mg/dL (0.2-1.3); BLOOD UREA NITROGEN 10 mg/dL (7-20); CALCIUM 8.8 mg/dL (8.4-10.2); CARBON DIOXIDE 28 mmol/L (22-30); CHLORIDE 102 mmol/L (98-107); GLUCOSE 86 mg/dL (75-110); POTASSIUM 3.8 mmol/L (3.6-5.0); TOTAL PROTEIN 7.5 g/dL (6.3-8.2)
== END 2020-04-27 23:14 | disposition left against medical advice (07) ==
LOC: ER 15:57
DX: R07.89 Other chest pain (principal); Z98.84 Bariatric surgery status; Z53.20 Procedure and treatment not carried out because of patient's decision for unspecified reasons
CPT/HCPCS: 36415; 71045; 80053; 84484; 93005; 93010; 99281